=== PATIENT | female | born 1960 | race Caucasian/White ===

== ENCOUNTER 2023-03-01 11:09 | Outpatient (CLI) | payer MEDICARE, BC | END 2023-03-01 11:10 | disposition home or self-care (01) | LOC: CSHMAMMO 11:09 | PROVIDERS: ATTEND Surgery | DX: Z13.820 Encounter for screening for osteoporosis (principal); S32.10XA Unspecified fracture of sacrum, initial encounter for closed fracture; M51.16 Intervertebral disc disorders with radiculopathy, lumbar region; M85.88 Other specified disorders of bone density and structure, other site | CPT/HCPCS: 77080 ==

== ENCOUNTER 2025-11-12 08:06 | Outpatient (CLI) | payer MEDICARE, BC | END 2025-11-12 08:07 | disposition home or self-care (01) | LOC: CSHMAMMO 08:06 | PROVIDERS: ATTEND Obstetrics & Gynecology | DX: R92.8 Other abnormal and inconclusive findings on diagnostic imaging of breast (principal); N63.11 Unspecified lump in the right breast, upper outer quadrant | CPT/HCPCS: 76642; 77065; G0279 ==

== ENCOUNTER → 2025-11-12 | Day surgery (SDC) | payer MEDICARE, BC | LOC: CSHULT 13:13 | PROVIDERS: ATTEND Obstetrics & Gynecology | PROC: 0HBT3ZX Excision of Right Breast, Percutaneous Approach, Diagnostic (ICD-10-PCS; principal; 2025-11-12) | DX: N64.89 Other specified disorders of breast (principal) | CPT/HCPCS: 19083; A4648; 88305; 88342 ==